=== PATIENT | female | born 1975 | race Caucasian/White ===

== ENCOUNTER 2023-10-14 11:46 | Outpatient (REF) | payer OTHER, SELFPAY ==
--- NOTE | 2023-10-14 11:00 | PAPFT_PTH ---
PATIENT: Madyson Brody LOC: [facility] U#:[id number] AGE/SX: 47/F ROOM: RE10/14/[address]: Keturah Yeh DO : 1975 BED: DIS: 10/14/2023 SPEC #: [id number] RECD: 10/14/23 12:55 STATUS: CAPO REQ #: [id number] BRITANY: 10/14/23 11:[address]: Keturah Yeh DEPT: [facility] Cytology RECD BY: Cynthia Vidales ENTERED: 10/14/23 12:55 SP TYPE: PAPFT OTHR DR: Unknown,Unknown Tissues: 1 - CX/ENDOCX FOR PAP SMEARS Procedures: PAP THIN PREP/[facility] Screening HPV DNA PROBE Comments: [id number]
== END 2023-10-14 11:47 | disposition home or self-care (01) ==
LOC: LBN 11:46
PROVIDERS: Visit Provider Obstetrics & Gynecology
DX: Z12.4 Encounter for screening for malignant neoplasm of cervix (principal); Z11.51 Encounter for screening for human papillomavirus (HPV)
CPT/HCPCS: 88142; 87624

== ENCOUNTER 2023-11-17 15:47 | Outpatient (REF) | payer OTHER, SELFPAY ==
--- NOTE | 2023-11-17 14:30 | ENDO_PTH ---
PATIENT: Madyson Brody LOC: [facility] U#:[id number] AGE/SX: 48/F ROOM: RE11/17/[address]: Keturah Yeh DO : 1975 BED: DIS: 11/17/2023 SPEC #: [id number] RECD: 11/17/23 17:34 STATUS: SOUDeisy REQ #: [id number] BRITANY: 11/17/23 14:[address]: Keturah Yeh DEPT: Surgical Specimen RECD BY: Cynthia Vidales ENTERED: 11/17/23 17:35 SP TYPE: Endo OTHR DR: Unknown,Unknown Tissues: 1 - ENDOCERVICAL BX/CURRETTE Procedures: GROSS AND MICRO LEVEL 4 Comments: [id number]
== END 2023-11-17 15:48 | disposition home or self-care (01) ==
LOC: LBN 15:47
PROVIDERS: Visit Provider Obstetrics & Gynecology
DX: R87.612 Low grade squamous intraepithelial lesion on cytologic smear of cervix (LGSIL) (principal); N88.8 Other specified noninflammatory disorders of cervix uteri
CPT/HCPCS: 88305

== ENCOUNTER 2024-11-01 12:40 | Outpatient (REF) | payer OTHER, SELFPAY ==
--- NOTE | 2024-11-01 11:30 | PAPFT_PTH ---
PATIENT: Madyson Brody LOC: [facility] U#:[id number] AGE/SX: 49/F ROOM: RE11/01/[address]: Keturah Yeh DO : 1975 BED: DIS: 11/01/2024 SPEC #: [id number] RECD: 11/01/24 12:51 STATUS: CAPO REQ #: [id number] BRITANY: 11/01/24 11:[address]: Keturah Yeh DEPT: [facility] Cytology RECD BY: Cynthia Vidales ENTERED: 11/01/24 12:51 SP TYPE: PAPFT OTHR DR: Unknown,Unknown Tissues: 1 - CX/ENDOCX FOR PAP SMEARS Procedures: PAP THIN PREP/[facility] Screening HPV DNA PROBE Comments: [id number] (HPV 16 & 18/45)
== END 2024-11-01 12:41 | disposition home or self-care (01) ==
LOC: LBN 12:40
PROVIDERS: Visit Provider Obstetrics & Gynecology
DX: Z01.419 Encounter for gynecological examination (general) (routine) without abnormal findings (principal); R87.612 Low grade squamous intraepithelial lesion on cytologic smear of cervix (LGSIL)
CPT/HCPCS: 88142; 87624

== ENCOUNTER 2024-12-27 14:12 | Outpatient (REF) | payer OTHER, SELFPAY ==
--- NOTE | 2024-12-27 13:50 | ENDO_PTH ---
PATIENT: Madyson Brody LOC: [facility] U#:[id number] AGE/SX: 49/F ROOM: RE12/27/[address]: Keturah Yeh DO : 1975 BED: DIS: 12/27/2024 SPEC #: [id number] RECD: 12/27/24 18:10 STATUS: SOUDeisy REQ #: [id number] BRITANY: 12/27/24 13:[address]: Keturah Yeh DEPT: Surgical Specimen RECD BY: Cynthia Vidales ENTERED: 12/27/24 18:11 SP TYPE: Endo OTHR DR: Unknown,Unknown Tissues: 1 - ENDOCERVICAL BX/CURRETTE 2 - CERVICAL BIOPSY Procedures: GROSS AND MICRO LEVEL 4 Comments: [id number] (SPECIMEN #1 - TISSUE INSUFFICIENT FOR DX)
== END 2024-12-27 14:13 | disposition home or self-care (01) ==
LOC: LBN 14:12
PROVIDERS: Visit Provider Obstetrics & Gynecology
DX: Z12.4 Encounter for screening for malignant neoplasm of cervix (principal)
CPT/HCPCS: 88305

== ENCOUNTER 2025-03-13 12:47 | Outpatient (CLI) | payer OTHER, SELFPAY ==
[2025-03-13 11:05] LABS: Abs Immature Grans 0.02 10^3/uL (0.0-0.06); HCT 40.7 % (36.0-46.0); HGB 13.2 g/dL (11.2-15.7); Immature Grans % 0.4 %; MCH 29.7 pg (27.0-33.0); MCHC 32.4 % (32.0-36.0); MCV 92 fL (80-95); MPV 10.0 fL (8.0-11.0); Platelet Count 130 10^3/uL (130-400); RBC 4.45 10^6/uL (3.93-5.22); RDW 13.1 % (11.7-14.6); RDW-SD 43.5 fL; WBC 5.44 10^3/uL (4.4-10.8)
[2025-03-13 11:46] LABS: TSH (W/Ref FT4) 2.55 uIU/mL (0.36-3.74)
[2025-03-13 18:03] LABS: FSH >150.0 mIU/mL (See Note)
== END 2025-03-13 12:48 | disposition home or self-care (01) ==
LOC: LBO 12:47
PROVIDERS: Visit Provider Obstetrics & Gynecology
DX: Z01.818 Encounter for other preprocedural examination (principal); N95.1 Menopausal and female climacteric states; F41.1 Generalized anxiety disorder
CPT/HCPCS: 36415; 86850; 86900; 86901; 83001; 84443; 85025

== ENCOUNTER 2025-03-15 07:38 | Day surgery (SDC) | payer OTHER, SELFPAY ==
[2025-03-15 08:02] VITALS: BP 154/104; PULSE 77; RESP 16; TEMP 36.6; O2SAT 100
[2025-03-15] MEDS: Lactated Ringers 1,000 ML 80 ML IV (08:24)
--- NOTE | 2025-03-15 08:28 | W.ANESPRE ---
General Info Date of Service Date Performed: 03/15/25 Height: 5 ft 3 in Weight: 56.5 kg Body Mass Index (BMI): 22.0 Surgical Procedure: Operation Date: 03/15/25 09:25 Proposed Procedure Side Surgeon p Leep Cone Biopsy Keturah Yeh DO Meds Allergies and Home Medications Allergies Allergy/AdvReac Type Severity Reaction Status Date / Time No Known Allergies Allergy Verified 03/15/25 08:11 Home Medication ?Medication ?Instructions ?Recorded bupropion HCl 150 mg 24 hr tablet, 150 mg PO QAM 10/14/23 extended release clonazepam 0.5 mg tablet 0.5 mg PO PRN 10/14/23 hydroxychloroquine 200 mg tablet 200 mg PO BID 10/14/23 (Plaquenil) lisinopril 40 mg tablet 40 mg PO DAILY 10/14/23 prednisone 5 mg tablet 5 mg PO DAILY 10/14/23 amlodipine 10 mg tablet 5 mg PO DAILY 03/13/25 Current Visit Medications: Current Medications Generic Name Dose Route Start Last Admin Trade Name Freq PRN Reason Stop Dose Admin Ringer's Solution 1,000 mls @ 80 mls/hr 03/15/25 06:00 03/15/25 08:24 IV 03/15/25 23:59 80 mls/hr INFUSION DEXTER Administration IV Miscellaneous Supplies 1 each 03/15/25 06:00 Iv Access IV 03/15/25 23:59 DIRECTED DEXTER Sodium Chloride 0 ml 03/15/25 06:00 Normal Saline Flush 10 Ml Syr IV 03/15/25 23:59 PRN PRN Sodium Chloride 0 ml 03/15/25 06:00 Normal Saline 10 Ml Vial IJ 03/15/25 23:59 DIRECTED PRN Sterile Water 0 ml 03/15/25 06:00 Water,Injection,Sterile 10 Ml Vial IJ 03/15/25 23:59 DIRECTED PRN PFSH Active Problems Active Problems: Problem Status Onset Code Menopausal symptom Acute N95.1 LGSIL on Pap smear of cervix Acute R87.612 History of vaginal dysplasia Acute Z87.411 History of cervical dysplasia Acute Z87.410 Well woman exam with routine gynecological exam Acute Z01.419 Hypertension Chronic I10 Lupus Acute M32.9 Surgical History Surgical History History of biopsy axillary History of endometrial ablation History of loop electrosurgical excision procedure (LEEP) Tobacco Smoking/Tobacco Use Status: Never Alcohol Alcohol Intake: current Alcohol intake frequency: a few times a week Alcohol type: hard liquor Substance Use Substance use: Never Substance use type: does not use Prental History History 1 Para 0 Hx # Term Pregnancies Multiple births Hx # Pregnancies Ectopic pregnancies AB induced 1 Hx Number of Living Children AB spontaneous Vital Signs and Lab Results Vital Signs Most Recent Vital Signs in EMR: Most Recent Vital Signs Temp Pulse Resp BP Pulse Ox 36.6 C 77 16 154/104 H 100 03/15/25 08:02 03/15/25 08:02 03/15/25 08:02 03/15/25 08:02 03/15/25 08:02 Lab Results Blood Type / Crossmatch: Antibody Screen NEGATIVE 03/13/25 Complete Blood Count: WBC, (4.4-10.8) 5.44 10^3/uL 03/13/25, 10:49 RBC, (3.93-5.22) 4.45 10^6/uL 03/13/25, 10:49 Hgb, (11.2-15.7) 13.2 g/dL 03/13/25, 10:49 Hct, (36.0-46.0) 40.7 % 03/13/25, 10:49 Plt Count, (130-400) 130 10^3/uL 03/13/25, 10:49 Thyroid Panel: TSH, (0.36-3.74) 2.55 uIU/mL 03/13/25, 10:49 Anesthesia Assessment and Plan Anesthesia History Personal History: No History of Anesthesia Complications Family History: No Family History of Anesthesia Complications Exercise Tolerance Exercise Tolerance: Metabolic Equivalents>4 Cardiac & Pulmonary Exam Cardiac Exam: Normal S1/S2 Heart Sounds Pulmonary Exam: Clear Bilateral Breath Sounds Implantable Cardiac Device Does patient have a Pacemaker or an ICD?: No Airway Exam Known Difficult Airway: No Mallampati Class: 2 Mouth Opening: Normal (> 3cm) Thyromental Distance: Greater than 3 cm Neck Range of Motion: Full ROM Neck Circumference: Normal Teeth Condition: Normal Dentition ASA Classification ASA Score: ASA 2 Emergency Case?: No NPO Status NPO Status: NPO Clears >2 hours, Solids >8 hours Status Status: Negative HCG Anesthesia Plan Resuscitation Status: Full Code Anesthesia Technique: General Anesthesia Airway Planned: Natural Airway Monitors Used: Standard Monitors Preoperative Comments:: 49 yo female for leep cone. Sig PMHx: HTN (amlodipine, lisinopril. 140/80s at home), lupus (hydroxychloroquine, prednisone), depression (bupropion). never smoker, occ EtOH. Denies GERD. Approp NPO.
[2025-03-15 08:31] VITALS: BMI 22.0
--- NOTE | 2025-03-15 10:28 | CER_PTH ---
PATIENT: Madyson Brody LOC: [facility] U#:[id number] AGE/SX: 49/F ROOM: RE03/15/[address]: Keturah Yeh DO : 1975 BED: DIS: 03/15/2025 SPEC #: [id number] RECD: 03/15/25 13:05 STATUS: CAPO RE #: [id number] BRITANY: 03/15/25 10:[address]: Keturah Yeh DEPT: Surgical Specimen RECD BY: Cynthia Vidales ENTERED: 03/15/25 13:08 SP TYPE: CER OTHR DR: Kinga Bonilla Tissues: 1 - CERVICAL CONE BX 2 - ENDOCERVICAL BX/CURRETTE Procedures: GROSS AND MICRO LEVEL 5 Comments: [id number]
[2025-03-15 10:40] VITALS: BP 118/72; PULSE 79; RESP 17; TEMP 36; O2SAT 98
--- NOTE | 2025-03-15 10:40 | W.PM.OP ---
Operative Note Operative Note PRE-OP DIAGNOSIS: Cervical dysplasia, positive HPV POST-OP DIAGNOSIS: same PROCEDURE: Loop electrocautery excisional procedure with Top-Hat SURGEON: Keturah Yeh ANESTHESIA TYPE: General:No Airway Refer to Anesthesia Record ESTIMATED BLOOD LOSS: 5 PATHOLOGY: other (1. Conization, ectocervix 2. Asyslyuudi-Nfw-Hbe) COMPLICATIONS: None Patient was transported to: same day Patient's condition: stable Indications: Persistent abnormal Pap smears and high risk HPV Findings: Visually normal cervix Procedure Description: After full informed consent was obtained, patient was then taken the operating suite with an IV running. She placed in the dorsal supine position and general anesthesia administered. She was then placed in the modified dorsolithotomy position in yellowfin stirrups and prepped and draped in the usual sterile fashion. Her bladder had been previously drained. Timeout was held. Pneumatic compression stocking placed for DVT prophylaxis. No antibiotic prophylaxis was warranted. Exam under anesthesia revealed a uterus that was midline and mobile with a small, normal cervix. Speculum was inserted into the vaginal vault and the cervix identified. A 10 x 20 mm loop was used with settings of 60?60, blend 4 cautery excision of the transformation zone. At this point, a 5 x 10 mm loop was used to perform a Top-Hat with removal of the endocervix. The base of her conization was then cauterized with electrocautery. Monsel's solution was placed on the excisional site. Hemostasis was achieved. Patient woke from anesthesia after she was returned to the dorsal supine position and was taken to the same-day surgical area in stable condition. Complications: None apparent Pathology: 1. Ectocervix, conization 2. Endocervix, Top-Hat EBL: 5 mL Fluids: Crystalloid per anesthesia. Date of Procedure: 03/15/25
--- NOTE | 2025-03-15 10:59 | W.ANESPOSTOP ---
Postoperative Evaluation Date, Time and Location Date Performed: 03/15/25 Time Performed: 10:59 Patient Location: Day Surgery Unit Vital Signs Most Recent Imported Vital Signs: Most Recent Vital Signs Temp Pulse Resp BP Pulse Ox 36.0 C L 79 17 118/72 98 03/15/25 10:40 03/15/25 10:40 03/15/25 10:40 03/15/25 10:40 03/15/25 10:40 Pain Score Most Recent Pain Score: Most Recent Pain Score Pain Level 0 03/15/25 10:40 Assessment Mental Status: Awake (Alert & Oriented to Patient Baseline) Airway and Respiratory Function: Patent airway with normal (patient baseline) respiratory exam Cardiovascular Function: Hemodynamically Stable Hydration Status: Adequately Hydrated Nausea & Vomiting: No Nausea or Vomiting Pain: Pt. Denies Any Pain Peripheral Nerve Block: Patient did not receive a nerve block
[2025-03-15 11:10] VITALS: BP 149/78; PULSE 65; RESP 16; TEMP 36.1; O2SAT 99
== END 2025-03-15 11:28 | disposition home or self-care (01) ==
PROVIDERS: PCP Family Medicine; Visit Provider Obstetrics & Gynecology
PROC: 0UBC7ZZ Excision of Cervix, Via Natural or Artificial Opening (ICD-10-PCS; CPT 57522; principal; 2025-03-15 09:15)
DX: N87.9 Dysplasia of cervix uteri, unspecified (principal); L93.0 Discoid lupus erythematosus
CPT/HCPCS: 57522; 88305; 88307; J1100; J1885; J2003; J2405; J2704